=== PATIENT | male | born 1995 | race Caucasian/White ===

== ENCOUNTER 2017-02-10 14:01 | Emergency (ER) | payer OTHER ==
[~2017-02-10] VITALS: Ht 180.3 cm; Wt 85.0 kg
[~2017-02-10 14:01] MED LIST: CIPR-255 PO
[2017-02-10 14:11] VITALS: Ht 180.3 cm; Wt 85.0 kg
[2017-02-10] MEDS ORDERED: MoRPHine SULFATE 4 MG/ML 1 ML CARP\\VIAL IV STA (15:56)
[2017-02-10] MEDS ORDERED: SODIUM CHLORIDE 0.9% 1000ML 2,000 ML IV STA (15:56)
[2017-02-10] MEDS ORDERED: ONDANSETRON INJ 2 MG/ML 2 ML VIAL IV STA (15:56)
[2017-02-10] MEDS ORDERED: RANITIDINE HCL 50 MG/100 ML D5W IV STA (15:56)
[2017-02-10 16:04] VITALS: O2SAT 98
[2017-02-10 16:06] LABS: BASO % 0.3 %; BASO ABS # 0.04 K/uL (0-0.2); COMPLETE YES; EOS % 0.1 %; HEMATOCRIT 48.3 % (42-52); IG% 0.3 %; LYMPH % 6.2 %; LYMPH ABS # 0.78 K/uL (1.2-3.4); MEAN CORPUSCULAR HEMOGLOBIN 31.5 pg (25-34); MEAN CORPUSCULAR HGB CONC 35.4 g/dl (32-36); MEAN PLATELET VOLUME 9.7 fL (7.4-10.4); NEUT % 88.1 %; PLATELET COUNT 244 K/uL (130-400); RED BLOOD COUNT 5.43 M/uL (4.7-6.1)
[2017-02-10 16:16] LABS: INR 1.1 (0.9-1.1); PROTHROMBIN TIME (PATIENT) 11.4 SECONDS (9.0-12.0)
[2017-02-10 16:24] LABS: BUN/CREATININE RATIO 14.4 (10-20); CALCIUM 9.5 mg/dl (8.5-10.1); POTASSIUM 4.2 mmol/L (3.5-5.1)
[2017-02-10 16:35] LABS: THYROID STIMULATING HORMONE 0.476 uIu/ml (0.300-4.500)
--- NOTE | 2017-02-10 16:49 | DIAGNOSTIC IMAGING REPORT ---
ABDOMEN 2VIEW W/PA CHEST RTN CLINICAL HISTORY: ABDOMINAL PAIN/GI pain. Nausea. COMPARISON STUDY: No previous studies for comparison. FINDINGS: The soft tissues, psoas shadows, renal outlines and intestinal gas pattern appear normal. There is no evidence for bowel obstruction. There is no evidence for free intraperitoneal air. No abnormal abdominal calcifications are seen. A frontal view of the chest was performed and is unremarkable. IMPRESSION: Normal study. The above report was generated using voice recognition software. It may contain grammatical, syntax or spelling errors. Electronically signed by: Paco Carrillo M.D. 02/10/2017 4:48 PM Dictated Date/Time: 02/10/2017 4:47 PM
[2017-02-10 17:47] VITALS: BP 132/84; PULSE 86; O2SAT 98
[2017-02-10] MEDS ORDERED: OMEP20CA59 PO (17:51)
[2017-02-10] MEDS ORDERED: ONDA4TAB10 SL (17:51)
[2017-02-10] MEDS ORDERED: ONDANSETRON HOME PACK 4MG OD TAB PO ONE (18:00)
--- NOTE | 2017-02-11 00:10 | EMERGENCY ROOM VISIT NOTE ---
History First contact with patient: 15:50 Chief Complaint: VOMITING Stated Complaint: VOMITING Nursing Triage Summary: triage note: Pt reports nausea, vomitting since 1000 today. History of Present Illness The patient is a 21 year old male who presents to the Emergency Room with complaints of nausea, vomiting and epigastric pain. The patient reports that he felt fine last night. He does admit to a significant amount of alcohol consumption last night. When he awoke this morning at 8 AM, he had upper central abdominal discomfort. He then started to develop nausea and vomiting at 10 AM. The patient did not notice any coffee-ground emesis. He has had no recent constipation or diarrhea. The patient has had melena stool in the past, and a history of GERD. The patient reports that he has also had esophageal spasms in the past. The patient has not had a formal GI consultation. He did complete a 4 week course of OTC Nexium a few months ago. The patient currently denies any abdominal pain. He does complain of a headache rated a 4 out of 10. He has not been able to tolerate any liquids. Review of Systems HEENT: Denies dizziness, visual problems, hearing loss, tinnitus. Denies difficulty swallowing or oral lesions. PULMONARY: Denies cough, shortness of breath, sputum production or hemoptysis. CARDIOVASCULAR: Denies chest pain, palpitations, dyspnea on exertion, orthopnea or peripheral edema. GASTROINTESTINAL: Denies diarrhea or constipation, otherwise see history of present illness. GENITOURINARY: Denies dysuria, frequency, urgency or nocturia. NEUROLOGIC: Denies history of epilepsy, CVA, TIA or chronic headaches. MUSCULOSKELETAL: Denies history of joint tenderness/swelling. SKIN: Denies rashes or lesions. PSYCHIATRIC: Denies history of depression or mental illness. ENDOCRINE: Denies history of diabetes or thyroid disorders. Past Medical/Surgical History Medical Problems: (1) Broken tibia Family History No pertinent family history Social History Smoking Status: Never Smoker Alcohol Use: occasionally Marital Status: single Occupation Status: employed, [employer] student Current/Historical Medications Scheduled Omeprazole (Prilosec), 20 MG PO DAILY Ondasetron Odt (Zofran Odt), 4 MG SL Q6H Physical Exam Vital Signs Date Time Temp Pulse Resp B/P (MAP) Pulse Ox O2 Delivery O2 Flow Rate FiO2 02/10/17 17:47 86 20 132/84 98 Room Air 02/10/17 16:08 52 02/10/17 16:04 61 20 131/76 99 Room Air 02/10/17 16:04 98 Room Air 02/10/17 14:11 64 18 130/69 97 Room Air Physical Exam CONSTITUTIONAL: Healthy and well nourished. Alert and oriented X 3 with positive affect. Patient appears in mild to moderate distress from nausea. HEENT: Normocephalic, atraumatic. Pupils equal, round and reactive. Ears and nares are clear. No scleral icterus or conjunctival injection. No rhinorrhea. OROPHARYNX: No tonsillar hypertrophy or exudates. NECK: Full active range of motion without discomfort. RESPIRATORY: Clear to auscultation bilaterally with no wheezing, crackles, rhonchi or stridor. CARDIOVASCULAR: Regular rate and rhythm with no murmurs, rubs or gallops. GASTROINTESTINAL: Bowel sounds present in all quadrants. Minimal epigastric tenderness to palpation. No obvious hepatosplenomegaly. Negative CVA tenderness. MUSCULOSKELETAL: Full range of motion of all joints without discomfort. INTEGUMENTARY: No rash or other significant dermatologic conditions noted. HEMATOLOGIC: No ecchymosis or petechiae noted. NEUROLOGIC: No focal neurologic deficits noted. Medical Decision & Procedures ER Provider Diagnostic Interpretation: My interpretation of an abdomen obstruction series with a PA chest. Does not show any abdominal free air, lung consolidations or obstructive pattern. Radiologist report is as follows: ABDOMEN 2VIEW W/PA CHEST RTN CLINICAL HISTORY: ABDOMINAL PAIN/GI pain. Nausea. COMPARISON STUDY: No previous studies for comparison. FINDINGS: The soft tissues, psoas shadows, renal outlines and intestinal gas pattern appear normal. There is no evidence for bowel obstruction. There is no evidence for free intraperitoneal air. No abnormal abdominal calcifications are seen. A frontal view of the chest was performed and is unremarkable. IMPRESSION: Normal study. Laboratory Results 02/10/17 15:50 Red Blood Count 5.43, Mean Corpuscular Volume 89.0, Mean Corpuscular Hemoglobin 31.5, Mean Corpuscular Hemoglobin Concent 35.4, Mean Platelet Volume 9.7, Neutrophils (%) (Auto) 88.1, Lymphocytes (%) (Auto) 6.2, Monocytes (%) (Auto) 5.0, Eosinophils (%) (Auto) 0.1, Basophils (%) (Auto) 0.3, Neutrophils # (Auto) 11.10, Lymphocytes # (Auto) 0.78, Monocytes # (Auto) 0.63, Eosinophils # (Auto) 0.01, Basophils # (Auto) 0.04 02/10/17 15:50 Test 02/10/17 15:50 White Blood Count 12.60 K/uL (4.8-10.8) Red Blood Count 5.43 M/uL (4.7-6.1) Hemoglobin 17.1 g/dL (14.0-18.0) Hematocrit 48.3 % (42-52) Mean Corpuscular Volume 89.0 fL (80-100) Mean Corpuscular Hemoglobin 31.5 pg (25-34) Mean Corpuscular Hemoglobin Concent 35.4 g/dl (32-36) Platelet Count 244 K/uL (130-400) Mean Platelet Volume 9.7 fL (7.4-10.4) Neutrophils (%) (Auto) 88.1 % Lymphocytes (%) (Auto) 6.2 % Monocytes (%) (Auto) 5.0 % Eosinophils (%) (Auto) 0.1 % Basophils (%) (Auto) 0.3 % Neutrophils # (Auto) 11.10 K/uL (1.4-6.5) Lymphocytes # (Auto) 0.78 K/uL (1.2-3.4) Monocytes # (Auto) 0.63 K/uL (0.11-0.59) Eosinophils # (Auto) 0.01 K/uL (0-0.5) Basophils # (Auto) 0.04 K/uL (0-0.2) RDW Standard Deviation 40.7 fL (36.4-46.3) RDW Coefficient of Variation 12.8 % (11.5-14.5) Immature Granulocyte % (Auto) 0.3 % Immature Granulocyte # (Auto) 0.04 K/uL (0.00-0.02) Prothrombin Time 11.4 SECONDS (9.0-12.0) Prothromb Time International Ratio 1.1 (0.9-1.1) Activated Partial Thromboplast Time 26.1 SECONDS (21.0-31.0) Partial Thromboplastin Ratio 1.0 Anion Gap 7.0 mmol/L (3-11) Est Creatinine Clear Calc Drug Dose 124.4 ml/min Estimated GFR () 124.1 Estimated GFR (Non- 107.1 BUN/Creatinine Ratio 14.4 (10-20) Calcium Level 9.5 mg/dl (8.5-10.1) Total Bilirubin 1.4 mg/dl (0.2-1) Direct Bilirubin 0.3 mg/dl (0-0.2) Aspartate Amino Transf (AST/SGOT) 26 U/L (15-37) Alanine Aminotransferase (ALT/SGPT) 33 U/L (12-78) Alkaline Phosphatase 88 U/L (45-117) Total Creatine Kinase 263 U/L (39-308) Total Protein 8.0 gm/dl (6.4-8.2) Albumin 4.7 gm/dl (3.4-5.0) Lipase 76 U/L (73-393) Thyroid Stimulating Hormone (TSH) 0.476 uIu/ml (0.300-4.500) The above labs were reviewed and were normal except for elevated bilirubins and a mild leukocytosis. Medications Administered Medications (Trade) Dose Ordered Sig/Amy Route Start Time Stop Time Status Last Admin Dose Admin Ondansetron HCl (Zofran Inj) 4 mg NOW STAT IV 02/10/17 15:56 02/10/17 15:59 DC 02/10/17 16:11 4 MG Sodium Chloride 2,000 ml @ 999 mls/hr Q2H1M STAT IV 02/10/17 15:56 02/10/17 17:56 DC 02/10/17 16:11 999 MLS/HR Morphine Sulfate (MoRPHine SULFATE INJ) 4 mg NOW STAT IV 02/10/17 15:56 02/10/17 15:59 DC 02/10/17 16:11 4 MG Ranitidine HCl (zANTac IV) 50 mg NOW STAT IV 02/10/17 15:56 02/10/17 15:59 DC 02/10/17 16:11 50 MG Ondansetron HCl (ZOFRAN ODT 4MG Home Pack) 1 homepack UD ONCE PO 02/10/17 18:00 02/10/17 18:01 DC 02/10/17 18:05 1 HOMEPACK Procedure 1. IV hydration: The patient was administered normal saline 2 L bolus 2. IV medications: Morphine 4 mg, Zofran 4 mg and Zantac 50 mg IVP ED Course Patient history and physical exam were performed. Nurse's notes were reviewed. Vital signs were reviewed and normal. The patient is not tachycardic, and is afebrile. The patient is also normotensive. IV access was established, and labs were drawn. The patient was hydrated with normal saline, and received IV medications as discussed in the previous Procedure section. ECG and abdomen x- ray with a chest x-ray was normal. Review of labs shows mildly elevated bilirubin levels and a mild leukocytosis. Remaining electrolytes are normal. I did order stool studies, including an H. pylori antigen, however the patient was unable to provide a stool sample for urine sample. The patient reported significant relief of his symptoms with treatment as indicated in the previous Procedure section. He was tolerating oral fluids, and requested discharge home. The case was also discussed with Dr. Cosme, ED attending physician, who agrees with workup and outpatient plan of care. I strongly encouraged the patient to follow-up with gastroenterology given his history and recent melena. The patient was instructed to refrain from any further NSAIDs, alcohol and caffeine use. He was provided a prescription for Prilosec 20 mg daily. He was provided contact information for the [facility] GI office. He was instructed to return to the emergency department for any progressively worsening symptoms, especially if his symptoms started to radiate into the right lower quadrant. I do not suspect acute appendicitis, but the patient was made aware of this possibility. The patient was happy with plan of care, voiced understanding of all discharge instructions, and denied any pain or nausea at the time of discharge. Medical Decision Patient presents to the emergency department with complaint of epigastric pain, nausea and vomiting. The patient does admit to drinking a significant amount of alcohol last night. He has also had recent history of melanotic stools, and history of GERD. He has not had any prior GI workup. I did suggest that he discuss his symptoms with gastroenterology. His laboratory studies are not suggestive of acute pancreatitis, hepatitis or cholecystitis. His abdominal exam is benign, therefore I do not suspect a surgical abdomen. The patient was unable to provide a stool sample to rule out H. pylori infection. Medication Reconcilliation Current Medication List: was personally reviewed by me Blood Pressure Screening Patient's blood pressure: Normal blood pressure Impression Primary Impression: Nausea and vomiting Additional Impressions: Epigastric abdominal pain History of melena History of gastroesophageal reflux (GERD) Departure Information Prescriptions Ondasetron Odt (ZOFRAN ODT) 4 Mg Tab 4 MG SL Q6H for Nausea, #10 TAB Prov: Chaz Jc PA 02/10/17 Omeprazole (Prilosec) 20 Mg Capcr 20 MG PO DAILY for 30 Days, #30 CAP Prov: Chaz Jc PA 02/10/17 Referrals No Doctor, Assigned (PCP) Patient Instructions [facility] Problem Qualifiers
== END 2017-02-10 18:10 | disposition home or self-care (01) ==
LOC: C.EDB 14:02 → C.EDA 18:10
DX: R11.2 Nausea with vomiting, unspecified (principal); R10.13 Epigastric pain; K21.9 Gastro-esophageal reflux disease without esophagitis

== ENCOUNTER → 2017-04-12 | Day surgery (SDC) | payer OTHER ==
[2017-04-04 12:35] VITALS: Ht 180.3 cm; Wt 86.4 kg
[~2017-04-12] VITALS: Ht 180.3 cm; Wt 86.4 kg
[~2017-04-12] MED LIST changes: -CIPR-255 PO; +FENTANYL CITRATE INJ 50 MCG/1 ML 2 ML VIAL ONE; +LIDOCAINE HCL 2% 2 ML VIAL (20MG/ML) ONE; +MAGNESIUM PO; +OMEG10007 PO; +PANT40TA PO; +PROPOFOL IV EMULSION 10 MG/ML 20 ML VIAL IV ONE; +SODIUM CHLORIDE 0.9% 500ML 500 ML IV ONE; +ZINC PO
--- NOTE | 2017-04-12 08:46 | Endo History and Physical ---
History & Physical Date of Service: Apr 12, 2017. Chief Complaint: Melena, GERD Referring Physician: [facility] History of Present Illness 21 yo CM who presents for EGD secondary to GERD and Melena. Past Surgical History Hx Cardiac Surgery: No Hx Internal Defibrillator: No Hx Pacemaker: No Hx Abdominal Surgery: Yes (UMBILICAL HERNIA) Hx of Implantable Prosthesis: No Hx Post-Op Nausea and Vomiting: No Hx Cancer Surgery: No Hx Thoracic Surgery: No Hx Orthopedic: Yes (RT KNEE SURGERY X 5) Hx Urinary Tract Surgery: No Family History None Social History Smoking Status: Never Smoker Hx Substance Use: No Hx Alcohol Use: Yes ("SOCIALLY") Allergies Coded Allergies: No Known Allergies (Unverified , 04/12/17) Current Medications Reported Home Medications Medications Dose Route/Sig Max Daily Dose Days Date Category [Zinc & Magnesium] 1 Cap PO QAM 04/04/17 Reported [place]-3 (Fish Oil) 1 Ea Cap 1 Cap PO QAM 04/04/17 Reported Protonix (Pantoprazole Sodium) 40 Mg Tab 40 Mg PO QAM 04/04/17 Reported Vital Signs Weight (Kilograms): 86.36 Height (Feet): 5 Height (Inches): 11 Date Time Temp Pulse Resp B/P (MAP) Pulse Ox O2 Delivery O2 Flow Rate FiO2 04/12/17 08:26 36.0 57 20 108/66 (80) 99 Room Air Physical Exam General Appearance: WD/WN, no apparent distress Respiratory/Chest: Auscultation: breath sounds normal Cardiovascular: Heart Auscultation: RRR Abdomen: Bowel Sounds: normal Inspection & Palpation: soft, non-distended, no tenderness, guarding & rebound Assessment and Plan Assessment: 21 yo CM who presents for EGD secondary to GERD and Melena. Plan: Proceed with EGD.
--- NOTE | 2017-04-12 09:21 | GI REPORT ---
Procedure Date: 04/12/2017 9:03 AM Procedure: Upper GI endoscopy Indications: Gastro-esophageal reflux disease, Melena Medicines: Monitored Anesthesia Care Complications: No immediate complications. Estimated Blood Loss: Estimated blood loss: none. Procedure: Pre-Anesthesia Assessment: - Prior to the procedure, a History and Physical was performed, and patient medications and allergies were reviewed. The patient's tolerance of previous anesthesia was also reviewed. The risks and benefits of the procedure and the sedation options and risks were discussed with the patient. All questions were answered, and informed consent was obtained. Prior Anticoagulants: The patient has taken no previous anticoagulant or antiplatelet agents. ASA Grade Assessment: II - A patient with mild systemic disease. After reviewing the risks and benefits, the patient was deemed in satisfactory condition to undergo the procedure. After obtaining informed consent, the endoscope was passed under direct vision. Throughout the procedure, the patient's blood pressure, pulse, and oxygen saturations were monitored continuously. The On-site loaner was introduced through the mouth, and advanced to the second part of duodenum. The upper GI endoscopy was accomplished without difficulty. The patient tolerated the procedure well. Findings: The examined esophagus was normal. A medium amount of food (residue) was found in the entire examined stomach. Localized mild inflammation characterized by erythema was found in the gastric antrum. Biopsies were taken with a cold forceps for histology. The examined duodenum was normal. Impression: - Normal esophagus. - A medium amount of food (residue) in the stomach. - Gastritis. Biopsied. - Normal examined duodenum. Recommendation: - Resume previous diet. - Continue present medications. - Await pathology results. - Do a gastric emptying study at appointment to be scheduled. - Return to primary care physician as previously scheduled. Gilbert Salmeron DO 04/12/2017 9:20:45 AM This report has been signed electronically. Note Initiated On: 04/12/2017 9:03 AM I attest to the content of the Intraoperative Record and orders documented therein, exceptions below
--- NOTE | 2017-04-12 09:22 | Discharge Instructions ---
Endoscopy Patient Instructions Date / Procedure(s) Performed Apr 12, 2017. EGD Allergy Information Coded Allergies: No Known Allergies (Unverified , 04/12/17) Discharge Date / Findings Apr 12, 2017. Gastritis s/p biopsies Retained gastric contents Medication Instructions OK to resume all medications today as prescribed Reported Home Medications Medications Dose Route/Sig Max Daily Dose Days Date Category [Zinc & Magnesium] 1 Cap PO QAM 04/04/17 Reported [place]-3 (Fish Oil) 1 Ea Cap 1 Cap PO QAM 04/04/17 Reported Protonix (Pantoprazole Sodium) 40 Mg Tab 40 Mg PO QAM 04/04/17 Reported Provider Instructions Activity Restrictions - No exercising or heavy lifting for 24 hours. - Do not drink alcohol the day of the procedure. - Do not drive a car or operate machinery until the day after the procedure. - Do not make any important decisions or sign important papers in 24 hours after the procedure. Following Day: - Return to full activity which may include returning to work/school. Diet Start your diet with liquids and light foods (jello, soup, juice, toast). Then eat your usual diet if not nauseated. Treatment For Common After Affects For mild abdominal pain, bloating, or excessive gas: - Rest - Eat lightly - Lie on right side Follow-Up Information Follow-up with [facility] as scheduled Anesthesia Information What You Should Know You have had a procedure that required some medicine to reduce anxiety and discomfort. This treatment is called moderate sedation. After receiving the treatment, you may be sleepy, but you will be able to breathe on your own. The effects of the treatment may last for several hours. Follow these instructions along with Activity/Diet recommendations noted above: * Do NOT do anything where dizziness or clumsiness would be dangerous. * Rest quietly at home today, then you can be up and about tomorrow. * Have a responsible person stay with you the rest of today. * You may have had an I.V. today. If so, you may take the dressing off later today. Recommendations Call your doctor if: * Trouble breathing * Continuous vomiting for more than 24 hours * Temperature above 101 degrees * Severe abdominal pain or bloating * Pain not relieved by pain medicine ordered * There is increased drainage or redness from any incision * A large amount of rectal bleeding greater than 2-3 tablespoons. (If you had a polyp/s removed or have hemorrhoids, a small amount of blood - from the rectum is to be expected.) * You have any unanswered questions or concerns. IN THE EVENT OF A SERIOUS EMERGENCY, GO TO THE NEAREST EMERGENCY ROOM Your discharge instructions were prepared by provider Gilbert Salmeron. Patient Instructions Signature Page Ladarius Wadsworth Patient (or Guardian) Signature/Date: I have read and understand the instructions given to me by my caregivers. Caregiver/RN/Doctor Signature/Date: The above-named patient and/or guardian has received patient instructions on this date. + Original Patient Signature Page (only) stays with chart. Please make copy for patient.
[2017-04-12 09:50] VITALS: BP 129/42; PULSE 57; O2SAT 96
--- NOTE | 2017-04-12 10:09 | Anesthesiology Progress Note ---
Anesthesia Post Op Note Date & Time Apr 12, 2017 at 10:09 Vital Signs Pain Intensity: 0 Vital Signs Past 12 Hours Date Time Temp Pulse Resp B/P (MAP) Pulse Ox O2 Delivery O2 Flow Rate FiO2 04/12/17 09:50 57 18 129/42 (71) 96 Room Air 04/12/17 09:40 62 16 117/72 (87) 97 Room Air 04/12/17 09:30 68 16 108/76 (87) 96 Room Air 04/12/17 08:26 36.0 57 20 108/66 (80) 99 Room Air Notes Mental Status: alert / awake / arousable, participated in evaluation Pt Amnestic to Procedure: Yes Nausea / Vomiting: adequately controlled Pain: adequately controlled Airway Patency, RR, SpO2: stable & adequate BP & HR: stable & adequate Hydration State: stable & adequate Anesthetic Complications: no major complications apparent
== END | disposition home or self-care (01) ==
LOC: C.GI 08:11
PROVIDERS: ATTEND Internal Medicine
DX: K29.60 Other gastritis without bleeding (principal); K21.9 Gastro-esophageal reflux disease without esophagitis; K92.1 Melena

== ENCOUNTER → 2017-05-01 | Outpatient (CLI) | payer OTHER ==
[~2017-05-01] MED LIST changes: -FENTANYL CITRATE INJ 50 MCG/1 ML 2 ML VIAL ONE; -LIDOCAINE HCL 2% 2 ML VIAL (20MG/ML) ONE; -PROPOFOL IV EMULSION 10 MG/ML 20 ML VIAL IV ONE; -SODIUM CHLORIDE 0.9% 500ML 500 ML IV ONE
--- NOTE | 2017-05-01 13:28 | DIAGNOSTIC IMAGING REPORT ---
GASTRIC EMPTYING CLINICAL HISTORY: 21 years-old Male presenting with K31.89 Retained food in [id number]. TECHNIQUE: Following the oral administration of 1.05 mCi of technetium 99m sulfur colloid in egg sandwich and 8 ounces of water, static abdominal images are obtained anteriorly and posteriorly at 0 minutes, 1 hour, 2 hour, and 4 hour time intervals. Gastric emptying was calculated utilizing the geometric mean method. COMPARISON: Abdominal radiograph from 02/10/2017. FINDINGS: There is approximately 67% activity remaining at the 1 hour time interval, 23% remaining at the 2 hour time interval (normal is less than 60%), and 0% activity remaining at the 4 hour time interval (normal is less than 10%). IMPRESSION: Findings are consistent with normal gastric emptying. Electronically signed by: Thomas Sanchez M.D. 05/01/2017 1:27 PM Dictated Date/Time: 05/01/2017 1:24 PM
== END | disposition home or self-care (01) ==
LOC: C.NUCL 08:52
PROVIDERS: ATTEND Internal Medicine
DX: K31.89 Other diseases of stomach and duodenum (principal)